=== PATIENT | female | born 1970 | race Caucasian/White ===

== ENCOUNTER → 2017-09-22 12:58 | Outpatient (POV) | payer BC, SELFPAY | PROVIDERS: Family Provider Family Medicine; Visit Provider Dermatology | DX: Z00.00 Encounter for general adult medical examination without abnormal findings (principal) ==

== ENCOUNTER → 2018-01-05 09:05 | Outpatient (CLI) | payer BC, SELFPAY ==
--- NOTE | 2018-01-05 09:11 | XR_ITS ---
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 The kidneys are of normal size shape and position. There is mild ectasia of the left renal collecting system and proximal to mid ureter. The left ureter crosses midline at the L5-S1 junction to join the right ureter. The ureteral ectasia has resolved on the post void image. The right renal collecting system has an unremarkable appearance without evidence of obstruction. Post void image shows only minimal amount of post void residual urine within the urinary bladder. IMPRESSION: 1. Ectasia of the left renal collecting system which improves on the post void image. No definite point of obstruction. 2. Unremarkable right renal collecting system.
== END ==
PROVIDERS: Family Provider Family Medicine; PCP Urology; Visit Provider Urology
DX: R10.9 Unspecified abdominal pain (principal)
CPT/HCPCS: 74400; Q9967

== ENCOUNTER → 2018-07-18 14:32 | Outpatient (CLI) | payer BC, SELFPAY ==
--- NOTE | 2018-07-18 14:38 | XR_ITS ---
XR KUB HISTORY: ITS.REASON: kidney stones ORDERING PHYSICIAN: Vijay Bojorquez MD PATIENT AGE: 47 years COMPARISON: 01/05/2018 FINDINGS: Surgical clips are present in the lower abdominal region and right pelvic area. There are 2 faint calcifications are noted over the upper pole the right kidney suggesting right nephrolithiasis measuring approximately 2 to 3 mm. No obvious ureteral calculi. Multiple pelvic calcifications are present consistent with phleboliths similar to 01/05/2018. IMPRESSION: Possible right nephrolithiasis
== END ==
PROVIDERS: PCP Nurse Practitioner; Visit Provider Urology
DX: N20.0 Calculus of kidney (principal)
CPT/HCPCS: 74018

== ENCOUNTER 2018-09-22 10:00 | Outpatient (RCR) | payer BC, SELFPAY ==
--- NOTE | 2018-08-30 09:56 | HMH.PTOPEV ---
PT Outpatient Evaluation Rehab PT Outpatient Evaluation Start: 08/30/18 09:51 Freq: Status: Active Protocol: Document 08/30/18 09:51 HUMBERTO (Rec: 08/30/18 09:56 HUMBERTO [id number]) Electronically Signed By Anmol Neely, PT 08/30/18 09:51 Outpatient Therapy Subjective History Subjective History Pt reports injury to L side low back ~ 1month ago while using rowing machine followed by treadmill. Pt reports no radicular s/s, only very intermittent referred pain into L lateral pelvic area. Chief Complaint Pain Stiff Symptom Type Ache Throb Dull Symptoms Relieved By Rest/Positioning Ice Symptoms Aggravated By Bending/Stooping Twisting Prior Functional Limitations Reaching Lifting Housework Bending/Stooping Current Functional Limitations Reaching Lifting Housework Bending/Stooping Symptom Description Constant but Variable Level of pain today (0-10) 3 Pain scale - at its best (0-10) 0 Pain scale - at its worst (0-10) 6 Lumbopelvic Eval Posture Thoracic Spine Posture Standing Position Neutral Lumbar Spine Posture Standing Position Neutral Assistive device Assistive Devices None / NA Gait Observation General Gait Pattern Observation No Deviations/Normal Palapation tenderness left lumbar spinal tenderness Yes: 3/4 Lumbar/Sacral Palpation Findings Tenderness Trigger Point Range of Motion Lumbar Spine Active Flexion Range of 0-60 Motion (degrees) Lumbar Spine Active Extension Range of 0-25 Motion (degrees) Left Lumbar Spine Lateral Flexion Active 0-25 Range of Motion (degrees) Right Lumbar Spine Lateral Flexion 0-20 Active Range of Motion (degrees) Lumbar Spine ROM Limitations Pain Manual Muscle Test Bilateral Knee Extension Strength Grade 5 Normal Knee Flexion Strength Grade 5 Normal Hip Flexion Strength Grade 4- Good- Hip Abduction Strength Grade 4- Good- Hip Adduction Strength Grade 4- Good- Hip External Rotation Strength Grade 4- Good- Hip Internal Rotation Strength Grade 4- Good- Hip Extension Strength Grade 4- Good- Extensor Hallucis Longus Strength Grade 5 Normal Ankle Dorsiflexion Strength Grade 5 Normal Gastronemi
== END 2018-09-22 10:05 | disposition home or self-care (01) ==
LOC: PT 10:00
PROVIDERS: Visit Provider Nurse Practitioner Family
DX: M25.552 Pain in left hip (principal)
CPT/HCPCS: 97010; 97014; 97035; 97110; 97140; 97163; G0283

== ENCOUNTER 2020-01-12 19:19 | Emergency (ER) | payer BC, SELFPAY ==
[2020-01-12 19:19] VITALS: BP 131/83; PULSE 70; RESP 20; O2SAT 98; BMI 21.6
--- NOTE | 2020-01-12 19:46 | HMH.EDUTC ---
[facility] [place] Disposition Clinical Impression: Poison hilda dermatitis Disposition: Home, Self-Care Condition on Discharge: Good Instructions: Poisonous Plants: Hilda, [employer], and [place]: Beware the Oils, Poison Hilda, Poison [employer], Poison [place], DI for Poison Hilda Allergy, Prednisone Additional Instructions: Keep area clean and dry Do not scratch Over the counter Calamine lotion may help to dry up the rash FOllow up with Family Doctor if no improvement or any worsening of symptoms Take medication as prescribed Return if needed Rash may continue to break out over the next few days/weeks Cool compresses may help with itching and irritation Straight to ER if any life threatening symptoms Prescriptions: methylPREDNISolone [Medrol 4mg tab] 4 mg PO DIRECTED #21 tab Transmission Status: Received by [id number] Referrals: Krista Carballo APRN [Primary Care Provider] - As needed Time of Disposition: 19:52 Medical Decision Making - Miguel Inquiry Pt receiving controlled substance: No Miguel was queried for this patient: No Vital Signs: 01/12/20 19:19 Pulse Rate [Radial] 70 Respiratory Rate 20 Blood Pressure [Right Arm] 131/83 Blood Pressure Mean [Right Arm] 99 Blood Pressure Source [Right Arm] Automatic Cuff Blood Pressure Position [Right Arm] Sitting 02 Sat by Pulse Oximetry 98 Oxygen Delivery Method Room Air Orders (Tests/Meds): ED MEDICATIONS Discontinued Medications Generic Name Dose Route Start Last Admin Trade Name Joanne PRN Reason Stop Dose Admin Methylprednisolone Sodium Succinate 125 mg 01/12/20 19:48 01/12/20 19:56 Solu-Medrol 125mg/2ml Vial IM 01/12/20 19:49 125 mg ONCE ONE Administration [facility] [place] HPI - General Stated complaint: posion hilda Time Seen by Provider: 01/12/20 19:46 Mode of Arrival: Ambulatory Source of Information: Patient Limitations: No Limitations Description of Symptoms (Recalled from Triage Doc. by RN): poison hilda HEENT Symptoms (Recalled from RN notes): No Resp Symptoms (Recalled from RN notes): No Skin Symptoms (Recalled from RN notes): Yes MS Symptoms (Recalled from RN notes): No Functional Status (Recalled from RN notes): wnl - History of Present Illness Provider Complaint: Patient states that she got into poison hilda and she noticed earlier that she was starting to break out on her face just under her left eye and face State that she knew it would spread and has had to come in before for injections for poison hilda so she came in to try to see if she could catch it quick - Related Data Home Medications Medication Instructions Recorded Confirmed Levothyroxine Sodium [Synthroid 25 mcg PO DAILY 12/30/17 07/18/18 25mcg (0.025mg) tablet] Pravastatin Sodium 10 mg PO DAILY 12/30/17 07/18/18 Previous Rx's Medication Instructions Recorded Hydrocodone/Acetaminophen [Lortab 1 tab PO Q4HP PRN #18 tab 12/30/17 7.5/325mg tablet] Ondansetron [Zofran 4mg ODT] 4 mg PO Q8HP PRN #10 tab.rapdis 12/30/17 methylPREDNISolone [Medrol 4mg 4 mg PO DIRECTED #21 tab 01/12/20 tab] Allergies Allergy/AdvReac Type Severity Reaction Status Date / Time penicillin G [PENICILLIN G] Allergy Unknown Verified 07/18/18 15:13 - Worker's Comp Is this a Worker's Comp case?: No [facility] History - Hepatitis A Screen Drug use history?: No High risk sexual behaviors?: No History of sexually transmitted infection?: No Currently employed?: No Childcare worker?: No Do you have indoor plumbing?: Yes Do you have electricity?: Yes Attestation statement:: This patient has been screened for Hepatitis A risk factors. I have reviewed the patient's past medical history: Yes Medical History: Reports:: Hyperlipidemia Other Medical History: Reports: Thyroid Disease, Other Laterality Cases: Bilateral: Other Other Surgeries: Yes: Appendectomy, Dilation and Curettage, Hysterectomy-Total, Tubal Ligation, Ureter Stent, Other - Social History Smoking Status: Current
[2020-01-12 20:14] VITALS: BP 131/83; PULSE 70; RESP 20; TEMP 36.7; O2SAT 98
== END 2020-01-12 20:16 | disposition home or self-care (01) ==
PROVIDERS: Emergency Provider Nurse Practitioner; PCP Nurse Practitioner
DX: L23.7 Allergic contact dermatitis due to plants, except food (principal); E78.5 Hyperlipidemia, unspecified; E03.9 Hypothyroidism, unspecified; Z88.0 Allergy status to penicillin; Z79.899 Other long term (current) drug therapy; F17.210 Nicotine dependence, cigarettes, uncomplicated; Z90.49 Acquired absence of other specified parts of digestive tract; Z90.710 Acquired absence of both cervix and uterus
CPT/HCPCS: 96372; 99201

== ENCOUNTER → 2020-06-20 15:01 | Outpatient (CLI) | payer BC, SELFPAY ==
[2020-06-20 17:27] VITALS: BMI 20.8
== END ==
PROVIDERS: PCP Nurse Practitioner; Visit Provider Family Medicine
DX: Z71.3 Dietary counseling and surveillance (principal); E11.9 Type 2 diabetes mellitus without complications
CPT/HCPCS: 97802

== ENCOUNTER → 2022-10-27 16:28 | Outpatient (CLI) | payer BC, SELFPAY | PROVIDERS: PCP Nurse Practitioner Family; Visit Provider Nurse Practitioner Family | DX: R30.0 Dysuria (principal) | CPT/HCPCS: 87086 ==

== ENCOUNTER → 2022-11-03 08:00 | Outpatient (CLI) | payer BC, SELFPAY ==
[2022-11-03 08:27] LABS: Basophils % 1.4 % (0.1-2.0); Eosinophils # 0.1 K/mm3 (0.0-0.4); Eosinophils % 2.1 % (0.1-12.0); Hematocrit 46.9 % (37.0-47.0); Hemoglobin 14.9 g/dL (12.2-16.2); Lymphocytes # 1.3 K/mm3 (0.7-4.5); Lymphocytes % 40.9 % (10-50); Mean Corpuscular HGB Conc 31.9 g/dL (31.8-35.4); Mean Corpuscular Hemoglobin 30.3 pg (27.0-31.2); Mean Corpuscular Volume 95.1 fl (81-99); Mean Platelet Volume 9.1 fl (7.4-10.4); Monocytes # 0.2 K/mm3 (0.1-1.0); Monocytes % 5.6 % (1.7-9.3); Neutrophils # 1.6 K/mm3 (1.8-7.8); Neutrophils % 50.1 % (37.0-80.0); Platelet Count 229 K/mm3 (142-424); Red Blood Count 4.93 M/mm3 (4.20-5.40); Red Cell Distribution Width 12.9 % (11.5-17.5); White Blood Count 3.3 K/mm3 (4.8-10.8)
[2022-11-03 09:12] LABS: Alanine Aminotransferase 19 U/L (12-78); Albumin Level 4.7 g/dl (3.5-5.0); Albumin/Globulin Ratio 1.8 (1.1-1.8); Alkaline Phosphatase 105 U/L (38-126); Anion Gap 17.5 mEq/L (5-15); Aspartate Amino Transferase 23 U/L (14-36); Bilirubin,Total 0.8 mg/dl (0.2-1.3); Blood Urea Nitrogen 21 mg/dl (7-17); Calcium 9.5 mg/dl (8.4-10.2); Carbon Dioxide 24 mmol/L (22.0-30.0); Chloride 102 mmol/L (98-107); Estimated Glomerular Filt Rate 88 ml/min (>60); GFR (African American) 107 ML/MIN (>60); Globulin 2.6 g/dL (1.3-3.2); Glucose 236 mg/dl (74-100); HDL Cholesterol 102 mg/dl (40-60); Potassium 4.5 mmoL/L (3.5-5.1); Sodium 139 mmol/L (136-145); Total Protein,Serum 7.3 g/dl (6.3-8.2); Triglycerides 121 mg/dl (30-150); VLDL Cholesterol 24 mg/dL (0-40)
[2022-11-03 09:19] LABS: Chol/HDL Ratio 3.2 (1-3.5); Cholesterol 324 mg/dl (140-200)
[2022-11-03 09:23] LABS: Direct LDL Cholesterol 161.22 mg/dL (100-129)
[2022-11-03 09:41] LABS: Thyroid Stimulating Hormone 2.34 uIU/mL (0.465-4.68)
[2022-11-03 11:24] LABS: Hemoglobin A1C 9.4 % (4.0-6.0)
--- NOTE | 2022-11-03 15:17 | CT_ITS ---
FINAL REPORT TECHNIQUE: Axial CT images of the abdomen and pelvis were obtained before and after the administration of IV contrast. This study was performed with techniques to keep radiation doses as low as reasonably achievable (ALARA). Individualized dose reduction techniques using automated exposure control or adjustment of mA and/or kV according to the patient''s size were employed. CLINICAL HISTORY: abd pain FINDINGS: Abdomen: There is mild bibasilar atelectasis. The heart is normal in size. There are several hepatic cysts. There is mild nonspecific gallbladder wall thickening. Probable cyst is seen in the spleen. No adrenal masses present. The pancreas has an unremarkable appearance. There is mild right renal scarring. There is mild left hydronephrosis and hydroureter. The aorta is normal in caliber. There is no free fluid or adenopathy. No mass or abnormal fluid collection is seen. Precontrast images demonstrate no evidence of nephrolithiasis. Pelvis: The appendix is not well visualized. Mild bladder wall thickening is seen, likely inflammatory. The patient is status post hysterectomy. Note is made of a left paracentral L5-S1 disc protrusion. No inflammatory process is seen. There is no evidence of mass or adenopathy. There is no evidence of bowel obstruction. IMPRESSION: Mild left hydronephrosis and hydroureter. No acute inflammatory process. Reviewed, Interpreted and Dictated by Randall Trevino III, MD Transcribed by Brenda Talavera Authenticated and . [facility]
== END ==
PROVIDERS: PCP Nurse Practitioner Family; Visit Provider Nurse Practitioner Family
DX: E10.9 Type 1 diabetes mellitus without complications (principal); R10.9 Unspecified abdominal pain; E03.9 Hypothyroidism, unspecified; E78.5 Hyperlipidemia, unspecified
CPT/HCPCS: 74178; 80053; 80061; 83036; 84443; 85025; Q9967

== ENCOUNTER → 2023-04-04 14:05 | Outpatient (CLI) | payer BC, SELFPAY ==
[2023-04-04 11:28] LABS: Microscopic, Urine URINE MICROSCOPIC (MICROSCOPIC)
[2023-04-04 11:52] LABS: Appearance,Urine CLEAR (Clear); Bilirubin,Urine Negative (Negative); Blood, Urine Negative (Negative); Color,Urine YELLOW (Yellow); Glucose,Urine (UA) 3+ (Negative); Ketones,Urine 2+ (Negative); Leukocyte Esterase,Urine Negative (Negative); Nitrate,Urine Negative (Negative); Protein,Urine Negative (Negative); Specific Gravity, Urine >= 1.030 (1.005-1.030); Urobilinogen,Urine 0.2 EU/dl (0.2)
[2023-04-04 12:06] LABS: Bacteria,Urine Trace /lpf; Squamous Epithelial Cell,Urine Occasional #/hpf (0-5)
[2023-04-04 12:07] LABS: Microalbumin/Creatinine Ratio 7.2
[2023-04-04 12:08] LABS: Creatinine,Urine Random 131 mg/dL (Not Estab.)
[2023-04-04 12:36] LABS: Alanine Aminotransferase 26 U/L (12-78); Albumin Level 4.6 g/dl (3.5-5.0); Albumin/Globulin Ratio 1.6 (1.1-1.8); Alkaline Phosphatase 81 U/L (38-126); Anion Gap 14.2 mEq/L (5-15); Aspartate Amino Transferase 27 U/L (14-36); Bilirubin,Total 1.5 mg/dl (0.2-1.3); Blood Urea Nitrogen 18 mg/dl (7-17); Calcium 9.8 mg/dl (8.4-10.2); Carbon Dioxide 29 mmol/L (22.0-30.0); Chloride 100 mmol/L (98-107); Chol/HDL Ratio 2.2 (1-3.5); Cholesterol 233 mg/dl (140-200); Estimated Glomerular Filt Rate 88 ml/min (>60); GFR (African American) 106 ML/MIN (>60); Globulin 2.9 g/dL (1.3-3.2); Glucose 277 mg/dl (74-100); HDL Cholesterol 108 mg/dl (40-60); Potassium 4.2 mmoL/L (3.5-5.1); Sodium 139 mmol/L (136-145); Total Protein,Serum 7.5 g/dl (6.3-8.2); Triglycerides 140 mg/dl (30-150); VLDL Cholesterol 28 mg/dL (0-40)
[2023-04-04 12:46] LABS: Direct LDL Cholesterol 100.21 mg/dL (100-129)
[2023-04-04 12:53] LABS: 25-OH Vitamin D, Total 39.6 ng/mL (30-100); Free T4 (Free Thyroxine) 1.89 ng/dl (0.78-2.19)
[2023-04-04 13:06] LABS: Thyroid Stimulating Hormone 0.87 uIU/mL (0.465-4.68)
[2023-04-04 13:26] LABS: Vitamin B12 703 pg/mL (239-931)
== END ==
PROVIDERS: PCP Nurse Practitioner Family; Visit Provider Nurse Practitioner Family
DX: E03.9 Hypothyroidism, unspecified (principal); E11.9 Type 2 diabetes mellitus without complications; E78.5 Hyperlipidemia, unspecified; B96.89 Other specified bacterial agents as the cause of diseases classified elsewhere; Z79.4 Long term (current) use of insulin
CPT/HCPCS: 80053; 80061; 81001; 82043; 82306; 82570; 82607; 83036; 84439; 84443; 87086

== ENCOUNTER → 2023-05-25 10:13 | Outpatient (CLI) | payer BC, SELFPAY | LOC: SL 10:15 | PROVIDERS: PCP Nurse Practitioner Family; Visit Provider Nurse Practitioner Family | DX: G47.33 Obstructive sleep apnea (adult) (pediatric) (principal) | CPT/HCPCS: G0399 ==

== ENCOUNTER 2023-10-03 14:13 | Outpatient (CLI) | payer BC, SELFPAY ==
[2023-10-03 13:37] LABS: Microscopic, Urine URINE MICROSCOPIC (MICROSCOPIC)
[2023-10-03 14:05] LABS: Appearance,Urine CLEAR (Clear); Bilirubin,Urine Negative (Negative); Blood, Urine Negative (Negative); Color,Urine YELLOW (Yellow); Glucose,Urine (UA) Negative (Negative); Ketones,Urine TRACE (Negative); Leukocyte Esterase,Urine Negative (Negative); Nitrate,Urine Negative (Negative); PH,Urine 5.5 (5.0-8.5); Protein,Urine Negative (Negative); Specific Gravity, Urine >= 1.030 (1.005-1.030); Urobilinogen,Urine 0.2 EU/dl (0.2)
[2023-10-03 14:28] LABS: Basophils # 0.1 K/mm3 (0-0.2); Basophils % 1.6 % (0.1-2.0); Eosinophils # 0.1 K/mm3 (0.0-0.4); Eosinophils % 2.5 % (0.1-12.0); Hematocrit 43.1 % (37.0-47.0); Hemoglobin 13.6 g/dL (12.2-16.2); Lymphocytes # 1.4 K/mm3 (0.7-4.5); Lymphocytes % 38.1 % (10-50); Mean Corpuscular HGB Conc 31.6 g/dL (31.8-35.4); Mean Corpuscular Volume 98.1 fl (81-99); Mean Platelet Volume 9.3 fl (7.4-10.4); Monocytes # 0.2 K/mm3 (0.1-1.0); Monocytes % 5.4 % (1.7-9.3); Neutrophils # 1.9 K/mm3 (1.8-7.8); Neutrophils % 52.4 % (37.0-80.0); Platelet Count 220 K/mm3 (142-424); Red Blood Count 4.39 M/mm3 (4.20-5.40); Red Cell Distribution Width 13.4 % (11.5-17.5); White Blood Count 3.6 K/mm3 (4.8-10.8)
[2023-10-03 14:31] LABS: Bacteria,Urine 1+ /lpf; Squamous Epithelial Cell,Urine Occasional #/hpf (0-5)
[2023-10-03 15:06] LABS: Alanine Aminotransferase 22 U/L (12-78); Albumin Level 4.4 g/dl (3.5-5.0); Albumin/Globulin Ratio 1.6 (1.1-1.8); Alkaline Phosphatase 88 U/L (38-126); Anion Gap 14.2 mEq/L (5-15); Aspartate Amino Transferase 32 U/L (14-36); Bilirubin,Total 1.2 mg/dl (0.2-1.3); Blood Urea Nitrogen 16 mg/dl (7-17); Calcium 9.7 mg/dl (8.4-10.2); Carbon Dioxide 28 mmol/L (22.0-30.0); Chloride 104 mmol/L (98-107); Cholesterol 220 mg/dl (140-200); Estimated Glomerular Filt Rate 88 ml/min (>60); GFR (African American) 106 ML/MIN (>60); Globulin 2.7 g/dL (1.3-3.2); Glucose 140 mg/dl (74-100); Potassium 5.2 mmoL/L (3.5-5.1); Sodium 141 mmol/L (136-145); Total Protein,Serum 7.1 g/dl (6.3-8.2); Triglycerides 37 mg/dl (30-150); VLDL Cholesterol 7 mg/dL (0-40)
[2023-10-03 15:10] LABS: Creatinine,Urine Random 94 mg/dL (Not Estab.)
[2023-10-03 15:11] LABS: Hemoglobin A1C 6.8 % (4.0-6.0)
[2023-10-03 15:14] LABS: Microalbumin < 6.000 mg/L (0-16.7)
[2023-10-03 15:17] LABS: Direct LDL Cholesterol 97.78 mg/dL (100-129)
[2023-10-03 15:24] LABS: HDL Cholesterol 111 mg/dl (40-60)
[2023-10-03 15:30] LABS: Free T4 (Free Thyroxine) 1.57 ng/dl (0.78-2.19)
[2023-10-03 15:40] LABS: Thyroid Stimulating Hormone 0.51 uIU/mL (0.465-4.68)
[2023-10-03 15:59] LABS: Vitamin B12 455 pg/mL (239-931)
== END 2023-10-03 23:59 | disposition home or self-care (01) ==
LOC: LAB.DROPOF 14:14
PROVIDERS: PCP Nurse Practitioner Family; Visit Provider Nurse Practitioner Family
DX: E10.9 Type 1 diabetes mellitus without complications (principal); E03.9 Hypothyroidism, unspecified; R53.83 Other fatigue; G47.33 Obstructive sleep apnea (adult) (pediatric); E78.5 Hyperlipidemia, unspecified; E55.9 Vitamin D deficiency, unspecified; Z79.4 Long term (current) use of insulin; Z79.899 Other long term (current) drug therapy
CPT/HCPCS: 80053; 80061; 81001; 82043; 82306; 82570; 82607; 83036; 84439; 84443; 85025; 87086

== ENCOUNTER → 2024-03-15 06:37 | Outpatient (CLI) | payer BC, SELFPAY | LOC: SL 06:38 | PROVIDERS: PCP Specialist; Visit Provider Specialist | DX: G47.33 Obstructive sleep apnea (adult) (pediatric) (principal) | CPT/HCPCS: G0399 ==

== ENCOUNTER 2024-04-02 14:39 | Outpatient (CLI) | payer BC, SELFPAY ==
[2024-04-02 12:58] LABS: Microscopic, Urine URINE MICROSCOPIC (MICROSCOPIC)
[2024-04-02 13:35] LABS: Appearance,Urine CLEAR (Clear); Bilirubin,Urine Negative (Negative); Blood, Urine Negative (Negative); Color,Urine YELLOW (Yellow); Glucose,Urine (UA) Negative (Negative); Ketones,Urine Negative (Negative); Leukocyte Esterase,Urine Negative (Negative); Nitrate,Urine Negative (Negative); Protein,Urine Negative (Negative); Specific Gravity, Urine >= 1.030 (1.005-1.030); Urobilinogen,Urine 0.2 EU/dl (0.2)
[2024-04-02 13:40] LABS: Alanine Aminotransferase 29 U/L (12-78); Albumin Level 4.6 g/dl (3.5-5.0); Albumin/Globulin Ratio 1.8 (1.1-1.8); Alkaline Phosphatase 63 U/L (38-126); Anion Gap 14.9 mEq/L (5-15); Aspartate Amino Transferase 31 U/L (14-36); Bilirubin,Total 1.2 mg/dl (0.2-1.3); Blood Urea Nitrogen 14 mg/dl (7-17); Calcium 9.5 mg/dl (8.4-10.2); Carbon Dioxide 23 mmol/L (22.0-30.0); Chloride 106 mmol/L (98-107); Chol/HDL Ratio 2.7 (1-3.5); Cholesterol 233 mg/dl (140-200); Estimated Glomerular Filt Rate 65 ml/min (>60); GFR (African American) 79 ML/MIN (>60); Globulin 2.6 g/dL (1.3-3.2); Glucose 126 mg/dl (74-100); HDL Cholesterol 86 mg/dl (40-60); Potassium 4.9 mmoL/L (3.5-5.1); Sodium 139 mmol/L (136-145); Total Protein,Serum 7.2 g/dl (6.3-8.2); Triglycerides 81 mg/dl (30-150); VLDL Cholesterol 16 mg/dL (0-40)
[2024-04-02 13:51] LABS: Direct LDL Cholesterol 119.14 mg/dL (100-129)
[2024-04-02 13:56] LABS: 25-OH Vitamin D, Total 48.7 ng/mL (30-100)
[2024-04-02 15:45] LABS: Hemoglobin A1C 6.8 % (4.0-6.0)
[2024-04-02 17:31] LABS: Free T4 (Free Thyroxine) 1.36 ng/dl (0.78-2.19)
== END 2024-04-02 23:59 | disposition home or self-care (01) ==
LOC: LAB.DROPOF 14:39
PROVIDERS: PCP Nurse Practitioner Family; Visit Provider Nurse Practitioner Family
DX: E10.9 Type 1 diabetes mellitus without complications (principal); R53.83 Other fatigue; E55.9 Vitamin D deficiency, unspecified; E03.9 Hypothyroidism, unspecified; E78.5 Hyperlipidemia, unspecified
CPT/HCPCS: 80053; 80061; 81001; 82306; 83036; 84439; 84443; 87086

== ENCOUNTER 2024-04-23 14:38 | Outpatient (CLI) | payer BC, SELFPAY ==
--- NOTE | 2024-04-23 14:41 | MM_ITS ---
PROCEDURE INFORMATION: Exam: Bilateral Screening 3D Mammography Exam date and time: 04/23/2024 2:37 PM Age: 53 years old Clinical indication: Screening. No family history of breast cancer. TECHNIQUE: Imaging protocol: Bilateral Screening tomosynthesis and 2D mammography including computer-aided detection (CAD) when performed. COMPARISON: [facility] DIGITAL MAMM-SCREEN BILATERAL 03/14/2012 5:00 PM FINDINGS: MAMMOGRAPHY: Breast composition: The breasts are heterogeneously dense, which may obscure small masses. Mass: None. Architectural distortion: None. Calcifications: No suspicious calcifications. Asymmetric density: None. Skin thickening: None. Axillary adenopathy: None. IMPRESSION: No mammographic evidence of malignancy. Annual screening is recommended unless otherwise clinically indicated. ASSESSMENT: BI-RADS Category 1: Negative.
== END 2024-04-23 23:59 | disposition home or self-care (01) ==
LOC: RAD 14:41
PROVIDERS: PCP Nurse Practitioner Family; Visit Provider Nurse Practitioner Family
DX: Z12.31 Encounter for screening mammogram for malignant neoplasm of breast (principal)
CPT/HCPCS: 77063; 77067

== ENCOUNTER 2024-05-04 09:26 | Outpatient (CLI) | payer BC, SELFPAY ==
[2024-05-04 13:24] LABS: Free T4 (Free Thyroxine) 2.17 ng/dl (0.78-2.19)
[2024-05-04 13:39] LABS: Thyroid Stimulating Hormone 0.47 uIU/mL (0.465-4.68)
== END 2024-05-04 23:59 | disposition home or self-care (01) ==
LOC: LAB.DROPOF 05-07 08:54
PROVIDERS: PCP Nurse Practitioner Family; Visit Provider Nurse Practitioner Family
DX: E03.9 Hypothyroidism, unspecified (principal)
CPT/HCPCS: 84439; 84443

== ENCOUNTER 2024-06-13 09:23 | Day surgery (SDC) | payer BC, SELFPAY ==
[2024-06-12 10:07] VITALS: BMI 21.2
[2024-06-13 09:52] VITALS: BP 119/62; PULSE 87; RESP 18; TEMP 36.5; O2SAT 99
[2024-06-13] MEDS: LACTATED RINGERS 1000ML 1,000 ML 50 ML IV (10:01)
[2024-06-13 10:04] LABS: POC Glucose,Bedside 91 (70-110)
--- NOTE | 2024-06-13 11:31 | P.PNANES_ITS ---
[facility] Disclaimer: The information contained in this section may have been updated after the patient was seen, as this information can be updated by other users. Medical History Poison roxane dermatitis Vertigo KARINA (obstructive sleep apnea) Hydroureter on left Hydronephrosis of left kidney Abdominal pain History of blood transfusion Ileus, postoperative Hyperlipidemia Hypothyroid Type 1 diabetes Renal colic on right side Surgical History Hx of ureter repair History of cystoscopy History of bilateral tubal ligation History of hysteroscopy Hx of salpingo-oophorectomy, bilateral H/O: hysterectomy History of appendectomy Family History Mother Diabetes type 2 diabetes Hypertension Heart attack Stroke Brother Diabetes type 2 Heart attack Hypertension Brother Diabetes type 2 Social History (Updated 06/13/24 @ 09:59 by Karol Horner RN) Smoking Status: Never smoker second hand exposure: No alcohol intake: current alcohol intake frequency: a few times a month substance use type: denies use current occupational status: employed Travel in the last 8 weeks: None caffeine: Yes Have you lived/traveled outside [place] in past 30 days?: No Contact w/someone who lives/traveled outside US past 30 days?: No Exposure to someone with infectious disease in past 14 days?: No Do you have a fever (greater than 100.4 F or 38 C)?: No Have you tested positive for COVID-19: No Exposed to someone with COVID-19 in past 14 days?: No Do you have a sore throat?: No Do you have a cough?: No Do you have any weakness?: No Are you experiencing any nausea/vomitting?: No Do you have any diarrhea?: No Are you experiencing any unusual bleeding?: No Do you have any muscle aches/pain?: No Do you have any abdominal pain?: No Are you experiencing loss of taste or smell?: No [facility] Anesthesia Checklist Patient Identification Patient Identification: Arm Band and Verbal (Name & ) Structural Data Admitted From: Home Planned Operative Procedure/s: Colonoscopy Consent for Planned Operative Procedure(s) Verified: Yes Verified Documents: Surgical Consent and History and Physical NPO Status Verified Time NPO: 06:30 Chart Verification Results Verified: CBC and BMP Additional verifications Fingerstick Blood Glucose: 91 Patient : No Anesthesia Reactions: No Cardiovascular Assessment Heart Sounds: S1 & S2 Pulse Rhythm: Irregular Peripheral Edema: No Airway Assessment Mallampati Score:: Class I C-Spine Mobility Assessed: Yes TMJ Mobility Assessed: Yes Dentition: Good Dentition Neurological Assessment Level of Consciousness: Awake, Alert, Appropriate and Follows Commands Hx Seizures: No Numbness or tingling in extremities: No Anesthesia Plan Anesthesia Risk discussed: Yes Anesthesia Plan: Verified ASA Class: III Anesthesia Type: MAC
[2024-06-13 11:32] VITALS: O2SAT 100
--- NOTE | 2024-06-13 11:40 | EXP.HP ---
History of Present Illness *Admission Date: 06/13/24 *Reason for visit:: Screening colonoscopy *History of present illness: Mrs. Lanier is a 53-year-old female who is here for initial screening colonoscopy. The examination is deemed medically necessary for screening colonoscopy. The patient has been seen, interviewed and examined prior to the procedure by both myself and the anesthesia provider. [facility] Disclaimer: The information contained in this section may have been updated after the patient was seen, as this information can be updated by other users. Medical History Poison roxane dermatitis Vertigo KARINA (obstructive sleep apnea) Hydroureter on left Hydronephrosis of left kidney Abdominal pain History of blood transfusion Ileus, postoperative Hyperlipidemia Hypothyroid Type 1 diabetes Renal colic on right side Surgical History Hx of ureter repair History of cystoscopy History of bilateral tubal ligation History of hysteroscopy Hx of salpingo-oophorectomy, bilateral H/O: hysterectomy History of appendectomy Family History Mother Diabetes type 2 diabetes Hypertension Heart attack Stroke Brother Diabetes type 2 Heart attack Hypertension Brother Diabetes type 2 Social History (Updated 06/13/24 @ 09:59 by Karol Horner RN) Smoking Status: Never smoker second hand exposure: No alcohol intake: current alcohol intake frequency: a few times a month substance use type: denies use current occupational status: employed Travel in the last 8 weeks: None caffeine: Yes Have you lived/traveled outside US in past 30 days?: No Contact w/someone who lives/traveled outside US past 30 days?: No Exposure to someone with infectious disease in past 14 days?: No Do you have a fever (greater than 100.4 F or 38 C)?: No Have you tested positive for COVID-19: No Exposed to someone with COVID-19 in past 14 days?: No Do you have a sore throat?: No Do you have a cough?: No Do you have any weakness?: No Are you experiencing any nausea/vomitting?: No Do you have any diarrhea?: No Are you experiencing any unusual bleeding?: No Do you have any muscle aches/pain?: No Do you have any abdominal pain?: No Are you experiencing loss of taste or smell?: No Other Medical History Have you received the Flu Vaccine for this season: No Have you received the Pneumonia Vaccine: No Review of Systems Review of Systems Review of systems (narrative): Negative *Cardiovascular Comments: Negative *Gastrointestinal Comments: Negative *Genitourinary Comments: Negative *Musculoskeletal Comments: Negative *Neurologic Comments: Negative Meds Home Medications and Allergies Home Medications ?Medication ?Instructions ?Recorded ?Confirmed ?Type blood sugar diagnostic (FreeStyle #100 ea 12/14/22 04/02/24 Rx Lite Strips) lancets 28 gauge (FreeStyle #100 ea 12/14/22 04/02/24 Rx Lancets) blood-glucose meter,continuous #1 ea 04/04/23 04/02/24 Rx (Dexcom G6 Supervisor Slitting [employer] Shipping) insulin aspart U-100 100 unit/mL See Protocol continuous 06/15/23 06/13/24 History subcutaneous solution (Novolog subcutaneous infusion CONT U-100 Insulin aspart) insulin pump cart,automated,BT #5 ea 06/15/23 04/02/24 History (Omnipod 5 G6 Pods (Gen 5) subcutaneous cartridge) blood-glucose transmitter (Dexcom #1 ea 02/15/24 04/02/24 Rx G6 Transmitter device) insulin pump cart,auto,BT,G6/7 #5 ea 04/02/24 04/02/24 History (Omnipod 5 G6-G7 Pods (Gen 5) subcutaneous cartridge) blood-glucose sensor (Dexcom G6 #3 ea 04/12/24 Rx Sensor device) levothyroxine 125 mcg tablet 125 mcg PO DAILY #30 tabs 05/07/24 06/13/24 Rx ezetimibe 10 mg tablet 10 mg PO DAILY #90 tabs 05/31/24 06/13/24 Rx sod picosulf 10 mg-magnes 3.5 175 ml PO DAILY Bowel Prep 2 doses 06/01/24 Rx gram-citric 12 gram/175 mL oral #350 mL solution (Clenpiq) New Prescriptions to Start Prescriptions: Allergies Allergy/AdvReac Type Severity Reaction Status Date / Time penicillin G (PENICILLIN G) Allergy Unknown Swelling Verified 06/13/24 09:50 of Lip/Tongue/Throat Hqhaped-ZAI-MhX Reductase AdvReac Severe Abdominal Verified 06/13/24 09:50 Inhibitor Pain Exam Data for Last 24 hours Vital signs and Labs for Last 24 Hours: Temp Pulse Resp BP Pulse Ox O2 Del Method O2 Flow Rate 97.7 F 87 18 119/62 99 Nasal Cannula 6 06/13/24 09:52 06/13/24 09:52 06/13/24 09:52 06/13/24 09:52 06/13/24 09:52 06/13/24 11:32 06/13/24 11:32 Laboratory Results - last 24 hr 06/13/24 09:56: POC Glucose 91 I & O for Last 24 hours: Intake & Output 06/10/24 06/11/24 06/12/24 06/13/24 23:59 23:59 23:59 23:59 Weight 128 lb *Routine HEENT Exam Head: Present normocephalic Eye: Present EOMI and PERRL ENT: Present mucous membranes moist *Routine Neck Exam Neck: Present supple *Routine Respiratory Exam Respiratory: Present CTA bilaterally *Routine Cardiovascular Exam Cardiovascular: Present RRR *Routine Abdominal Exam Abdominal: Present soft and normoactive bowel sounds; Absent tenderness *Routine Rectal Exam Rectal:: deferred *Routine Genitalia Exam Genitalia:: deferred *Routine Extremities Exam Extremities: Absent cyanosis, clubbing or edema *Routine Skin Exam Skin: Present warm; Absent rash *Routine Neurological Exam Neurological: Present alert and oriented X3 Assessment and Plan *Assessment and plan (1) Colon cancer screening: Status: Acute Category: Medical Code(s): Z12.11 - Encounter for screening for malignant neoplasm of colon Plan A/P: 1. Initial screening colonoscopy is the preprocedural diagnosis. The patient will be anesthetized/sedated using MAC sedation. The patient has been seen and examined. Cardiac and lung assessment prior to the examination is stable. Proceed with planned screening colonoscopy
--- NOTE | 2024-06-13 11:42 | P.PCN_ITS ---
[facility] [place] Procedure Note Date: 06/13/24 Time: 11:53 Procedure Note:: Colonoscopy Procedure Report: Colonoscopy Endoscopist: Jed Li II, MD Referring physician: KAY Oropeza Date of Procedure: June 13, 2024 Equipment: Olympus 190 variable stiffness pediatric colonoscope Sedation: MAC sedation Indication: Mrs. Lanier is a 53-year-old female who is here for initial screening colonoscopy. She reports no abdominal pain, weight loss, change in her bowel habits or rectal bleeding. She reports no family history of colon cancer. Procedure: Prior to the procedure, a history and physical exam was performed, and patient's medications and allergies were reviewed. The risks, benefits and alternatives of the sedation and procedure were discussed with the patient. All questions were answered and informed consent was obtained. The patient was brought to the procedure room. Patient identification and proposed procedure were verified by the physician and the nurse. The patient was placed in a left lateral decubitus position and the scope was passed under direct vision. Throughout the procedure, the patient's blood pressure, pulse, and oxygen saturations were monitored continuously. The colonoscopy was accomplished without difficulty. The patient tolerated the procedure well. Findings: On digital rectal examination there was normal rectal tone. There were no external hemorrhoids. The colonoscope was introduced through the anal canal to the rectum and advanced to the cecum. The ileocecal valve and appendiceal orifice were identified. The scope was advanced a short distance into the ileum which appeared grossly normal. The scope was then withdrawn into the colon. There was some bulbous extrinsic compression adjacent to the ileocecal valve with normal overlying mucosa and certainly no evidence of any submucosal mass or lesion. The remaining cecum, ascending, transverse, descending, sigmoid and rectum were grossly normal. There were no mucosal abnormalities identified. Upon retroflexion within the rectum there were grade 1 internal hemorrhoids.The preparation was excellent throughout with [place] Preparation Score of 9. The cecal time was 12 minutes. Impression: 1. Normal colonoscopy with intubation of the terminal ileum 2. Mild extrinsic compression adjacent to ileocecal valve Plan: The patient will not require surveillance colonoscopy again for 10 years. I did see some extrinsic compression of the cecum adjacent to the ileocecal valve and the ileum was normal. I would consider CT imaging of the abdomen.
[2024-06-13 11:58] VITALS: BP 99/66; PULSE 88; RESP 16; TEMP 36.7; O2SAT 99
[2024-06-13 12:08] VITALS: BP 107/64; PULSE 87; RESP 18; O2SAT 98
[2024-06-13 12:18] VITALS: BP 103/72; PULSE 92; RESP 18; O2SAT 98
[2024-06-13 12:28] VITALS: BP 133/69; PULSE 85; RESP 18; O2SAT 99
--- NOTE | 2024-06-13 12:29 | SUR.PHASEII ---
NOTIFIED RAD OF CT ABD ORDER WITH IV AND ORAL CONTRAST. THIS RN LET STAFF KNOW THAT MD MARQUEZ IS REQUESTING IT WITH IV AND ORAL CONTRAST AND WE DO NOT HAVE ORAL CONTRAST IN POST OP.
[2024-06-13] MEDS: DIATRIZOATE MEG 66% & DIATRIZOATE NA 10% 30ML UDC 30 ML PO (12:35)
--- NOTE | 2024-06-13 14:35 | CT_ITS ---
FINAL REPORT TECHNIQUE: CT examination of the abdomen and pelvis was performed with and without intravenous contrast using axial images. Subsequent coronal and sagittal reconstructions were performed. This study was performed with techniques to keep radiation doses as low as reasonably achievable (ALARA). Individualized dose reduction techniques using automated exposure control or adjustment of mA and/or kV according to the patient's size were employed. CLINICAL HISTORY: Extrinsic compression cecum COMPARISON: 11/03/2022 FINDINGS: The lung bases are clear. There is a benign-appearing cyst in the right lobe of the liver, measuring 2.7 cm in size, stable when compared to the prior CT. There is also a cyst in the anterior aspect of the spleen with an adjacent calcification, also stable. The spleen is otherwise unremarkable. The adrenals are normal. The pancreas is unremarkable. Mild left hydronephrosis and hydroureter to the level of surgical clips adjacent to the iliac vessels is once again noted, stable. Precontrast images demonstrate no nephrolithiasis. No focal pelvic mass or free fluid is identified. The cecum is low-lying, and is positioned adjacent to the rectum. The bladder is unremarkable in appearance. The uterus is not visualized. IMPRESSION: No acute process The cecum is low-lying and positioned adjacent to the rectum. No extrinsic compression of the cecum is visualized. Reviewed, Interpreted and Dictated by Shaji Dunham MD Transcribed by Christin Perrin Authenticated and . [facility]
--- NOTE | 2024-06-13 14:43 | SUR.PHASEII ---
patient dc'd from post-op to Radiology with IV access for CT Scan. Devora RT will remove IV after CT scan is completed
[2024-06-13] MEDS: IOPAMIDOL-370 (76%);100ML BOTTLE 75 ML IV (14:52)
[2024-06-13] MEDS: SODIUM CHLORIDE 0.9% 10ML SYR (RAD ONLY) 10 ML IV (14:52)
== END 2024-06-13 14:35 | disposition home or self-care (01) ==
PROVIDERS: PCP Nurse Practitioner Family; Visit Provider Internal Medicine Gastroenterology
PROC: (CPT 45378; principal; 2024-06-13 11:00)
DX: K64.0 First degree hemorrhoids (principal); Z12.11 Encounter for screening for malignant neoplasm of colon
CPT/HCPCS: 45378; 74178; 82962; J7120; Q9963; Q9967

== ENCOUNTER 2024-06-18 15:40 | Outpatient (CLI) | payer BC, SELFPAY ==
[2024-06-18 17:25] LABS: Basophils # 0.1 K/mm3 (0-0.2); Basophils % 1.6 % (0.1-2.0); Eosinophils # 0.1 K/mm3 (0.0-0.4); Eosinophils % 1.8 % (0.1-12.0); Hematocrit 40.1 % (37.0-47.0); Hemoglobin 13.6 g/dL (12.2-16.2); Lymphocytes # 1.8 K/mm3 (0.7-4.5); Lymphocytes % 36.5 % (10-50); Mean Corpuscular HGB Conc 33.9 g/dL (31.8-35.4); Mean Corpuscular Hemoglobin 31.1 pg (27.0-31.2); Mean Corpuscular Volume 91.6 fl (81-99); Mean Platelet Volume 11.3 fl (7.4-10.4); Monocytes # 0.4 K/mm3 (0.1-1.0); Neutrophils # 2.6 K/mm3 (1.8-7.8); Neutrophils % 51.9 % (37.0-80.0); Platelet Count 238 K/mm3 (142-424); Red Blood Count 4.38 M/mm3 (4.20-5.40); Red Cell Distribution Width 12.2 % (11.5-17.5)
[2024-06-18 17:55] LABS: Erythrocyte Sedimentation Rate 11 mm/hr (0-30)
[2024-06-19 12:18] LABS: C-Reactive Protein 0.9 mg/L (0-4)
== END 2024-06-18 23:59 | disposition home or self-care (01) ==
LOC: LAB.DROPOF 06-19 10:10
PROVIDERS: PCP Nurse Practitioner Family; Visit Provider Nurse Practitioner Family
DX: M25.561 Pain in right knee (principal); M25.461 Effusion, right knee; R10.31 Right lower quadrant pain
CPT/HCPCS: 85025; 85651; 86140

== ENCOUNTER 2024-06-22 12:49 | Outpatient (CLI) | payer BC, SELFPAY ==
--- NOTE | 2024-06-22 12:50 | US_ITS ---
FINAL REPORT CLINICAL HISTORY: right knee pain with swelling COMPARISON: None FINDINGS: Limited sonographic images were obtained of the right posterior knee at the region of interest. No cyst or mass identified at the area of interest. IMPRESSION: No abnormality identified right posterior knee. Reviewed, Interpreted and Dictated by Shaji Dunham MD Transcribed by Valerie Iyer Authenticated and [facility]
--- NOTE | 2024-06-22 12:50 | US_ITS ---
FINAL REPORT CLINICAL HISTORY: right knee pain with swelling COMPARISON: None FINDINGS: Limited sonographic images were obtained of the right inguinal region. Lymph nodes are seen measuring up to 3.4 cm in the right groin. The fatty juan diego is present in the lymph nodes. IMPRESSION: Enlarged lymph nodes right inguinal region. Findings do not appear pathologic and may be reactive. Reviewed, Interpreted and Dictated by Shaji Dunham MD Transcribed by Valerie Iyer Authenticated and [facility]
== END 2024-06-22 23:59 | disposition home or self-care (01) ==
LOC: RAD 12:50
PROVIDERS: PCP Nurse Practitioner Family; Visit Provider Nurse Practitioner Family
DX: M25.561 Pain in right knee (principal); M25.461 Effusion, right knee; R10.31 Right lower quadrant pain
CPT/HCPCS: 76882

== ENCOUNTER 2024-09-24 15:30 | Outpatient (CLI) | payer BC, SELFPAY ==
[2024-09-24 13:32] LABS: Microscopic, Urine URINE MICROSCOPIC (MICROSCOPIC)
[2024-09-24 13:53] LABS: Appearance,Urine CLEAR (Clear); Bilirubin,Urine Negative (Negative); Blood, Urine Negative (Negative); Color,Urine YELLOW (Yellow); Glucose,Urine (UA) Negative (Negative); Ketones,Urine Negative (Negative); Leukocyte Esterase,Urine Negative (Negative); Nitrate,Urine Negative (Negative); Protein,Urine Negative (Negative); Urobilinogen,Urine 0.2 EU/dl (0.2)
[2024-09-24 14:06] LABS: Bacteria,Urine Trace /lpf; Squamous Epithelial Cell,Urine Occasional #/hpf (0-5)
[2024-09-24 14:14] LABS: Creatinine,Urine Random 45 mg/dL (Not Estab.); Microalbumin < 6.000 mg/L (0-16.7)
[2024-09-24 14:17] LABS: Albumin Level 4.3 g/dl (3.5-5.0); Chloride 104 mmol/L (98-107); Potassium 4.8 mmoL/L (3.5-5.1); Sodium 135 mmol/L (136-145)
[2024-09-24 14:20] LABS: Alanine Aminotransferase 17 U/L (12-78); Albumin/Globulin Ratio 1.8 (1.1-1.8); Alkaline Phosphatase 76 U/L (38-126); Anion Gap 10.8 mEq/L (5-15); Aspartate Amino Transferase 25 U/L (14-36); Blood Urea Nitrogen 22 mg/dl (7-17); Calcium 9.5 mg/dl (8.4-10.2); Carbon Dioxide 25 mmol/L (22.0-30.0); Cholesterol 220 mg/dl (140-200); Estimated Glomerular Filt Rate 88 ml/min (>60); GFR (African American) 106 ML/MIN (>60); Globulin 2.4 g/dL (1.3-3.2); Glucose 117 mg/dl (74-100); Total Protein,Serum 6.7 g/dl (6.3-8.2); Triglycerides 52 mg/dl (30-150); VLDL Cholesterol 10 mg/dL (0-40)
[2024-09-24 14:21] LABS: Chol/HDL Ratio 2.3 (1-3.5); HDL Cholesterol 95 mg/dl (40-60)
[2024-09-24 14:31] LABS: Direct LDL Cholesterol 85.49 mg/dL (100-129)
[2024-09-24 14:38] LABS: Free T4 (Free Thyroxine) 1.93 ng/dl (0.78-2.19)
--- OUTSIDE RECORDS SUMMARY | 2024-09-24 15:32 | XMS_ITS | Continuity of Care Document ---
Author Name [facility] Organization [facility] Care Team Providers Care Process Mechanic Name Role Phone [facility] Unavailable Unavailable Social History Combined list of available smoking, tobacco, and other social history from Department of Defense and Veterans Affairs facilities. Social History Type Response Date Comment Sourc e This section is an empty social history section. DoD
[2024-09-24 21:53] LABS: Hemoglobin A1C 6.3 % (4.0-6.0)
== END 2024-09-24 23:59 | disposition home or self-care (01) ==
LOC: LAB.DROPOF 15:31
PROVIDERS: PCP Nurse Practitioner Family; Visit Provider Nurse Practitioner Family
DX: E78.5 Hyperlipidemia, unspecified (principal); E03.9 Hypothyroidism, unspecified; E10.9 Type 1 diabetes mellitus without complications
CPT/HCPCS: 80053; 80061; 81001; 82043; 82570; 83036; 84439; 84443; 87086

== ENCOUNTER 2024-10-30 08:38 | Outpatient (CLI) | payer BC, SELFPAY ==
[2024-10-30 15:10] LABS: Thyroid Stimulating Hormone 0.52 uIU/mL (0.465-4.68)
[2024-10-30 15:27] LABS: Free T4 (Free Thyroxine) 1.84 ng/dl (0.78-2.19)
--- OUTSIDE RECORDS SUMMARY | 2024-10-31 11:15 | XMS_ITS | Continuity of Care Document ---
Author Name [facility] Organization [facility] Care Team Providers Care Loan Originator Name Role Phone [facility] Unavailable Unavailable Social History Combined list of available smoking, tobacco, and other social history from Department of Defense and Veterans Affairs facilities. Social History Type Response Date Comment Sourc e This section is an empty social history section. DoD
--- OUTSIDE RECORDS SUMMARY | 2024-10-31 11:18 | XMS_ITS | Clinical Summary ---
Author Organization [facility] Address [address] [place] [address] Care Team Providers Care Registered Nurse Float Pool Name Role Phone Unavailable Primary Care Provider Unavailabl e Social History Tobacco Use Types Packs/Day Years Used Date Smoking Tobacco: Never Assessed Comments Unknown Sex and Gender Information Value Date Recorded Sex Assigned at Not on file Legal Sex Female 6:30 PM EDT Gender Identity Not on file Sexual Orientation Not on file Plan of Treatment Health Maintenance Due Date Last Done Comments [facility]-Depression Screening 1970 [facility]-Infant/Child/Adol SDOH Screenings 1970 [facility]- SDOH Screenings 1988 [facility]-Adult SDOH Screenings 1988 [facility]-DTaP,Tdap,and Td Vaccine s (1 - Tdap) 1989 [facility]-Hepatitis B Vaccines (1 of 3 - 19+ 3-dose series) 1989 [facility]-Pap Smear 12/28/1991 [facility]-Cervical Cancer Screening 2000 [facility]-HPV/Cotest 2000 CT Colonography 12/28/2015 Colonoscopy 12/28/2015 FIT-DNA 12/28/2015 FIT 12/28/2015 FOBT 12/28/2015 Sigmoidoscopy 12/28/2015 [facility]-Colorectal Cancer Screening 12/28/2015 [facility]-Pneumococcal Vaccine: 50 + Years (1 of 1 - PCV) 2020 [facility]-Zoster Vaccines (1 of 2) 2020 FCO-WZNVC-90 Vaccine (3 - 2023- season) 2024 03/06/2021, 02/06/2021 [facility]-Influenza Vaccine (Seaso n Ended) 2025 HPV Vaccines Aged Out No longer eligi ble based on patient's age to complete this topic [facility]-HIB Vaccines Aged Out No longer e ligible based on patient's age to complete this topic [facility]-Hepatitis A Vaccines Aged Out No longer eligible based on patient's age to complete this topic [facility]-IPV Vaccines Aged Out No longer e ligible based on patient's age to complete this topic [facility]-Rotavirus Vaccines Aged Out No lo nger eligible based on patient's age to complete this topic Insurance ANTH
--- OUTSIDE RECORDS SUMMARY | 2024-10-31 11:18 | XMS_ITS | Data Portability ---
Author Organization [facility] REESE Lewis [facility] Address [address] [place] [address] Care Team Providers Care Reservation Agent Name Role Phone CHARITY CURTIS Primary Care Provider Assessment No assessment recorded. Plan of Treatment Reminders Order Date Submit Date Provider Last Modified By Organization Details Last Modified Time Details Appointments None recorded. Lab urinalysis panel, auto 2022 023 [email or web address] [facility], [address], [place], [address], 3 14:59:20 urinalysis panel, auto 2022 023 [email or web address] [facility], [address], [address], [place], [address], 3 13:14:02 Referral None recorded. Procedures None recorded. Surgeries None recorded. Imaging None recorded. Medication Orders Gemtesa 75 mg tablet 2022 023 [email or web address] [facility], [address], [place], [address], 3 22:53:24 Patient TargetsNo targets recorded. Patient InstructionsNo instructions recorded. Reason for Referral None Reported. Results Created Date Observation Date Name Description Value Unit Range Abnormal Flag Note LastModifiedBy Organization Detail LastModifiedTime 11/09/1911/08/2022 urina lysis panel , auto Unknown Analyte Clean Catch Not Available [facility] [address], [place], [address], 11/08/2022 12:31:50 11/09/19 23 11/08/2022 urina lysis panel , auto Unknown Analyte Yellow Not Available [facility] [address], [place], [address], 11/08/2022 12:31:50 11/09/19 23 11/08/2022 urina lysis panel , auto Unknown Analyte Clear Not Available [facility] [address], [place], [address], 11/08/2022 12:31:50 11/09/19 23 11/08/2022 urina lysis panel , auto Unknown Analyte 1.005 Not Available [facility] [address], [place], [address], 11/08/2022 12:31:50 11/09/19 23 11/08/2022 urina lysis panel , auto Unknown Analyte 1.003- 1.035 Not Available [facility] [address], [place], [address], 11/08/2022 12:31:50 11/09/19 23 11/08/2022 urina lysis panel , auto Unknown Analyte 7.0 Not Available [facility] [address], [place], [address], 11/08/2022 12:31:50 11/09/19 23 11/08/2022 urina lysis panel , auto Unknown Analyte 5.0-8. 0 Not Available [facility] [address], [place], [address], 11/08/2022 12:31:50 11/09/19 23 11/08/2022 urina lysis panel , auto Unknown Analyte Negati ve Not Available [facility] [address], [place], [address], 11/08/2022 12:31:50 11/09/19 23 11/08/2022 urina lysis panel , auto Unknown Analyte Negati ve Not Available [facility] [address], [place], [address], 11/08/2022 12:31:50 11/09/19 23 11/08/2022 urina lysis panel , auto Unknown Analyte Negati ve Not Available [facility] [address], [place], [address], 11/08/2022 12:31:50 11/09/19 23 11/08/2022 urina lysis panel , auto Unknown Analyte Negati ve Not Available [facility] [address], [place], [address], 11/08/2022 12:31:50 11/09/19 23 11/08/2022 urina lysis panel , auto Unknown Analyte Negati ve Not Available [facility] [address], [place], [address], 11/08/2022 12:31:50 11/09/19 23 11/08/2022 urina lysis panel , auto Unknown Analyte Negati ve Not Available [facility] [address], [place], [address], 11/08/2022 12:31:50 11/09/19 23 11/08/2022 urina lysis panel , auto Unknown Analyte 250 mg/dl Not Available [facility] [address], [place], [address], 11/08/2022 12:31:50 11/09/19 23 11/08/2022 urina lysis panel , auto Unknown Analyte Normal Not Available [facility] [address], [place], [address], 11/08/2022 12:31:50 11/09/19 23 11/08/2022 urina lysis panel , auto Unknown Analyte 15 mg/dl (Sm) Not Available [facility] [address], [place], [address], 11/08/2022 12:31:50 11/09/19 23 11/08/2022 urina lysis panel , auto Unknown Analyte Negati ve Not Available [facility] [address], [place], [address], 11/08/2022 12:31:50 11/09/19 23 11/08/2022 urina lysis panel , auto Unknown Analyte Normal Not Available [facility] [address], [place], [address], 11/08/2022 12:31:50 11/09/19 23 11/08/2022 urina lysis panel , auto Unknown Analyte Normal 1 mg/dl Not Available [facility] [address], [place], [address], 11/08/2022 12:31:50 11/09/19 23 11/08/2022 urina lysis panel , auto Unknown Analyte Negati ve Not Available [facility] [address], [place], [address], 11/08/2022 12:31:50 11/09/19 23 11/08/2022 urina lysis panel , auto Unknown Analyte Negati ve Not Available [facility] [address], [place], [address], 11/08/2022 12:31:50 11/09/19 23 11/08/2022 urina lysis panel , auto Unknown Analyte Negati ve Not Available [facility] [address], [place], [address], 11/08/2022 12:31:50 11/09/19 23 11/08/2022 urina lysis panel , auto Unknown Analyte Negati ve Not Available [facility] [address], [place], [address], 11/08/2022 12:31:50 12/07/19 23 12/06/2022 urina lysis panel , auto Unknown Analyte Clean Catch Not Available [facility] [address], [place], [address], 12/06/2022 14:32:15 12/07/19 23 12/06/2022 urina lysis panel , auto Unknown Analyte Yellow Not Available [facility] [address], [place], [address], 12/06/2022 14:32:15 12/07/19 23 12/06/2022 urina lysis panel , auto Unknown Analyte Clear Not Available [facility] [address], [place], [address], 12/06/2022 14:32:15 12/07/19 23 12/06/2022 urina lysis panel , auto Unknown Analyte 1.010 Not Available [facility] [address], [place], [address], 12/06/2022 14:32:15 12/07/19 23 12/06/2022 urina lysis panel , auto Unknown Analyte 5.0 Not Available [facility] [address], [place], [address], 12/06/2022 14:32:15 12/07/19 23 12/06/2022 urina lysis panel , auto Unknown Analyte Negati ve Not Available [facility] [address], [place], [address], 12/06/2022 14:32:15 12/07/19 23 12/06/2022 urina lysis panel , auto Unknown Analyte POSITI VE (Abnor mal) Not Available [facility] [address], [place], [address], 12/06/2022 14:32:15 12/07/19 23 12/06/2022 urina lysis panel , auto Unknown Analyte Trace Not Available [facility] [address], [place], [address], 12/06/2022 14:32:15 12/07/19 23 12/06/2022 urina lysis panel , auto Unknown Analyte >1000 mg/dl Not Available [facility] [address], [place], [address], 12/06/2022 14:32:15 12/07/19 23 12/06/2022 urina lysis panel , auto Unknown Analyte 15 mg/dl (Sm) Not Available [facility] [address], [place], [address], 12/06/2022 14:32:15 12/07/19 23 12/06/2022 urina lysis panel , auto Unknown Analyte Normal Not Available [facility] [address], [place], [address], 12/06/2022 14:32:15 12/07/19 23 12/06/2022 urina lysis panel , auto Unknown Analyte Negati ve Not Available [facility] [address], [place], [address], 12/06/2022 14:32:15 12/07/19 23 12/06/2022 urina lysis panel , auto Unknown Analyte Negati ve Not Available [facility] [address], [place], [address], 12/06/2022 14:32:15 Result Notes None recorded. Problems Name Problem SNOMED Code Status Onset Date Resolution Date Notes Provider Name and Address Organization Details Recorded Time Acquired hydronephrosis 561541250 Active 2022 Radha Marcos [facility] 12:28:10 Problem Notes None recorded. Procedures Surgical History Date Name Laterality Status Provider Name and Address Organization Details Recorded Time 2022 Post Void Residual; Ultrasound completed Radha Marcos [facility] 3 13:57:12 Hysterectomy completed Radha Marcos [facility] 3 12:28:27 laparoscopic transureteroureterostomy completed Radhamanuel Marcos [facility] 3 12:29:08 Imaging Results None recorded. Procedure Notes None recorded. Medical Equipment None Reported. Allergies Allergen ID Allergen Name Allergen Category Reaction Reaction Severity Criticality Documentation Date Start Date Code Code System Note Provider Name and Address Organization Details Recorded Time 010306 Product containin g penicilli n (product) medicatio n Not available Not available Not available 11/08/2022 64463 8001 SNOMED Radhamanuel Marcos [facility] 3 12:26:47 Medications Name Sig Start Date Stop Date Status Note LastModified by Organization Details LastModified Time levothyroxine daily active Not Available Not Available Not Available pravastatin qhs active Not Available Not A vailable Not Available Gemtesa 75 mg tablet Take 1 tablet every day by oral route. 2022 active Not Available Not Available Not Avai lable Vitals Date Recorded Body height Body mass index (BMI) Body weight Provider Name and Address Organization Details Last Updated DateTime 11/08/2022 165.1 cm 20 kg/m2 28042.08 g Radha Marcos [facility] 11/08/2022 12:26:32 Date Recorded Body height Body mass index (BMI) Body weight Provider Name and Address Organization Details Last Updated DateTime 12/06/2022 165.1 cm 20 kg/m2 18264.08 g Peri Mas [facility] 12/06/2022 14:32:04 Social History Question Answer Notes LastModified by Organizat ion Details LastModified Time Tobacco Sm[facility] Status [facility] 12:31:35 What Was The Date Of Your Most Recent Tobacco Screening? 11/08/2022 Information not available 11/08/2022 Sex: Unknown Functional Status Question Answer Note LastModified by Organizat ion Details LastModified Time Do you use any illicit or recreational drugs? No Information not available 11/08/2022 What is your level of alcohol consumption? Occasional Information not available 11/08/2022 Mental Status None recorded. Family History Relationship Description Onset Age of this Age Resolved Age Notes LastModified by Organization Details LastModified Time Mother Diabetes mellitus kcinnamon Not available 2022 12:29:26 Brother Diabetes mellitus kcinnamon Not available 2022 12:29:26 Medical History Condition Response Diabetes Y Other Y Bladder or Kidney Problems Y Kidney Stones Y Sleep Apnea Y High Cholesterol Y Thyroid Disorder Y Gynecological HistoryNo gynecological history recorded. Obstetrics History GPAL:G 0 P 0 0 0 0 Past Encounters Encounter ID Performer Location Encounter Start Date Encounter Closed Date Diagnosis/Indication Diagnosis SNOMED-CT Code Diagnosis ICD10 Code Diagnosis Note [id number] MD MARIA E ORDOÑEZ [facility] [address] [facility] [place] [place] [address] 11/08/2022 11:55:10 11/08/2022 13:13:57 Increased frequency of urination 916331414 R35.0 She was given 4 weeks samples of Gemtesa. She will follow-up in 4 weeks [id number] LUBNA MORALES MD [facility] [address] [facility] [place] [address] 12/06/2022 14:08:26 12/06/2022 15:02:21 Increased frequency of urination 490011532 R35.0 She was given 2 more weeks of samples. She will take this for 3 months and then see how she was therapy. Follow-up here in 3 months Health Concerns Section Related Observation LastModified by Organization Detai ls LastModified Time None Recorded Concern Status LastModified by Organization Details LastModified Time None Recorded Advance Directives Directive None Recorded Payers Insurance Date Sequence Insurance Name Policy Number Policy Orr Covered Member ID Orr Member ID Guarantor Name 12/13/2022 1 [place] [id number] N Marzena Lanier [id number] Marzena Lanier 12/13/2022 2 [place] [id number] Davon Lanier [id number] Marzena Lanier Notes Date Note Type Note Provider Name and Address Organization Details Recorded Time 3 text/htm l Patient is here for initial visit in several years. I last saw her in 2019. 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 She had images in [address] scan as well as IVP which showed some slight dilation of the left proximal ureter but no obstruction. Recently she developed some suprapubic discomfort. Her urine culture was negative and her PCP arrange for a CT scan. This revealed some mild left hydronephrosis. Upon inspection it looks to be unchanged from 2019. She has had no flank pain. She had no hematuria. She continues to have some suprapubic pressure and occasional nocturia which was not previously present all beginning about 2 weeks ago. Her bladder scan residual today was 8 mL. Her urine is unremarkable other than trace glucose and trace of ketones. We discussed options including cystoscopy. Initially I suggest we place her on Gemtesa for a few weeks and see if this resolves her symptoms. She appears to empty well and does not appear to have an infection. If she fails to respond we will consider cystoscopy with possible urethral dilation. I reviewed her CT scan from [facility] obtained last week. Radha michael, [facility] 11/08/2022 16:21:34 3 text/htm l Patient is here in follow-up last seen 1 month ago for some suprapubic pressure and mild discomfort. She was given 4 weeks samples of Gemtesa and her symptoms completely resolved. We will continue therapy. LUBNA MORALES MD [address] [address] [place], [address], [facility] 12/12/2022 22:56:15 OBGyn Episode No OBEpisode recorded.
--- OUTSIDE RECORDS SUMMARY | 2024-10-31 11:18 | XMS_ITS | Encounter Summary ---
Author Organization Healthcare Address [address] [id number] Care Team Providers Care Golf Club Weighter Name Role Phone Unavailable Primary Care Provider Unavailabl e Reason for Referral * Consultation (Routine) - Authorized Specialty Diagnoses / Procedures Referred By Contjair t Referred To Contact Dentist / Pain Medicine Diagnoses Obstructive sleep apnea (adult) (pediatric) Rebeca Man MD [address] [place] [address] [place] [address] Phone: tel: fax: Rae Calle, DDS [address] [facility] [address] [place] [address] Phone: tel: fax: Referral ID Status Reason Start Date Expiration Date V isits Requested Visits Authorized [id number] Authorized 06/17/2023 12/16/2024 1 1 Encounter Details Date Type Department Care Team (Late st Contact Info) Description 06/17/2023 Community Orders [facility] [address] [place] [address] Rebeca Man MD [address] [place] [address] [place] [address] Obstructive sleep apnea (adult) (pediatric) (Primary Dx) Social History Tobacco Use Types Packs/Day Years Used Date Smoking Tobacco: Never Assessed Comments Unknown Sex and Gender Information Value Date Recorded Sex Assigned at Not on file Legal Sex Female 6:30 PM EDT Gender Identity Not on file Sexual Orientation Not on file documented as of this encounter Plan of Treatment Scheduled Referrals Name Type Priority Associated Diagnoses Order Schedule Ambulatory Referral to Orofacial Pain Outpatient Referral Routine Obstructive sleep apnea (adult) (pediatric) Expected: 06/17/2023 (Approximate), Expires: 12/15/2024 documented as of this encounter Visit Diagnoses Diagnosis Obstructive sleep apnea (adult) (pediatric)- Primary documented in this encounter
== END 2024-10-30 23:59 | disposition home or self-care (01) ==
LOC: LAB.DROPOF 10-31 11:14
PROVIDERS: PCP Nurse Practitioner Family; Visit Provider Nurse Practitioner Family
DX: E03.9 Hypothyroidism, unspecified (principal)
CPT/HCPCS: 84439; 84443

== ENCOUNTER 2025-02-14 10:20 | Outpatient (CLI) | payer BC, SELFPAY ==
[2025-02-14 14:24] LABS: Chloride 103 mmol/L (98-107); Potassium 4.7 mmoL/L (3.5-5.1); Sodium 139 mmol/L (136-145)
[2025-02-14 14:27] LABS: Blood Urea Nitrogen 16 mg/dl (7-17); Calcium 9.8 mg/dl (8.4-10.2); Cholesterol 226 mg/dl (140-200); Creatinine,Serum 0.70 mg/dl (0.52-1.04); Estimated Glomerular Filt Rate 87 ml/min (>60); GFR (African American) 106 ML/MIN (>60); Glucose 125 mg/dl (74-100); Triglycerides 70 mg/dl (30-150)
[2025-02-14 14:28] LABS: HDL Cholesterol 79 mg/dl (40-60)
[2025-02-14 14:34] LABS: Hemoglobin A1C 6.6 % (4.0-6.0)
[2025-02-14 14:42] LABS: Free T4 (Free Thyroxine) 1.82 ng/dl (0.78-2.19)
[2025-02-14 14:58] LABS: Thyroid Stimulating Hormone 0.97 uIU/mL (0.465-4.68)
[2025-02-14 18:03] LABS: Anion Gap 14.7 mEq/L (5-15); Carbon Dioxide 26 mmol/L (22.0-30.0)
--- OUTSIDE RECORDS SUMMARY | 2025-02-18 09:33 | XMS_ITS | Encounter Summary ---
Author Organization Healthcare Address [address] [place] [address] Care Team Providers Care National Account Executive Name Role Phone Unavailable Primary Care Provider Unavailabl e Encounter Details Date Type Department Care Team (Late st Contact Info) Description 06/17/2023 Community [facility] [address] [place] [address] Rebeca Man MD [address] [place] [address] Obstructive sleep apnea (adult) (pediatric) (Primary Dx) Social History Tobacco Use Types Packs/Day Years Used Date Smoking Tobacco: Never Assessed Comments Unknown Sex and Gender Information Value Date Recorded Sex Assigned at Not on file Legal Sex Female 6:30 PM EDT Gender Identity Not on file Sexual Orientation Not on file documented as of this encounter Plan of Treatment Not on file documented as of this encounter Visit Diagnoses Diagnosis Obstructive sleep apnea (adult) (pediatric)- Primary documented in this encounter
--- OUTSIDE RECORDS SUMMARY | 2025-02-18 09:33 | XMS_ITS | Encounter Summary ---
[facility] Organization [facility] Address [address] [place] [address] Care Team Providers Care Children'S Program Coordinator Name Role Phone Mo Nelida KODY Primary Care Provider [phone] Reason for Visit * Reason Comments Med Refill Encounter Details Date Type Department Care Team (Late st Contact Info) Description 02/12/2025 Refill [facility] ENDOCRINOLOGY [address] [facility] [address] [place] [id number] Chandler Upton MD [address] [place] [address] Social History Tobacco Use Types Packs/Day Years Used Date Smoking Tobacco: Never Passive Smoke Exposure: Never Smokeless Tobacco: Never Alcohol Use Standard Drinks/Week Comments Yes 0 (1 standard drink = 0.6 oz pur e alcohol) social Abuse Screen Answer Date Recorded Unsafe at Home or Work/School Not on file Feels Threatened by Someone? Not on file Does Anyone Keep You from Co ntacting Others or Doint Things Outside the Home? Not on file 03/04/2023 Physical Sign of Abuse Present Not on file 1 Housing Stability Answer Date Recorded Current Living Arrangements Not on file 02/20 Potentially Unsafe Housing Conditions Not on romelia e 03/04/2023 Family and Community Support Answer Fili e Recorded Help with Day-to-Day Activities Not on file 03/04/2023 Lonely or Isolated Not on file 03/04/2023 Employment Answer Date Recorded Do you want help finding or keeping work or a tariq b? Not on file 03/04/2023 Disabilities Answer Date Recorded Concentrating, Remembering, or Making Decisions Difficulty Not on file 03/04/2023 Doing Errands Independently Difficulty Not on fi le 03/04/2023 Education Answer Date Recorded Help with school or training? Not on file Preferred Language Not on file 03/04/2023 Comments Unknown Sex and Gender Information Value Date Recorded Sex Assigned at Not on file Legal Sex Female 10:48 AM EST Gender Identity Not on file Sexual Orientation Not on file documented as of this encounter Plan of Treatment Not on file documented as of this encounter Visit Diagnoses Not on filedocumented in this encounter Care Teams Children'S Program Coordinator Relationship Specialty Start Date End Date Nelida Hassan APRN [address] [place] [id number] PCP - General Nurse Practitioner 04/19/23 documented as of this encounter
--- OUTSIDE RECORDS SUMMARY | 2025-02-18 09:33 | XMS_ITS | Clinical Summary ---
Author Organization [facility] Address [address] [place] [address] Care Team Providers Care Queen'S Counsel Name Role Phone Unavailable Primary Care Provider [...] 2020 UKY-Zoster Vaccines (1 of 2) 2020 [id number] Vaccine (3 - 2024- season) 2025 03/06/2021, 02/06/2021 UKY-Influenza Vaccine (#1) 2025 HPV Vaccines Aged Out No longer [...] patient's age to complete this topic Insurance AN[employer]M
--- OUTSIDE RECORDS SUMMARY | 2025-02-18 09:33 | XMS_ITS | Clinical Summary ---
Author Organization [facility] Address [address] [place] [address] Care Team Providers Care Budget Assistant Name Role Phone HassanNelida KODY Primary Care Provider Allergies Active Allergy Reactions Criticality Noted Date Comments Penicillins Swelling High 04/19/2023 Swelling of tongue and gums Medications Euthyrox 100 MCG tablet 1 Active Lancets (freestyle) lancets USE 1 TO CHECK GLUCOSE 4 TIMES DAILY 1 Active FREESTYLE LITE test strip USE 1 STRIP TO CHECK GLUCOSE 4 TIMES DAILY FOR 30 DAYS 1 Active ezetimibe (ZETIA) 10 MG tablet Take 1 tablet by mouth Daily. 3 Active Continuous Blood Gluc Asian Studies Program Chair (Dexcom G6 Asian Studies Program Chair) device USE DIRECTED TO TEST BLOOD GLUCOSE LEVEL 3 Active Continuous Blood Gluc Sensor (Dexcom G6 Sensor) USE DIRECTED TO TEST BLOOD GLUCOSE LEVEL CHANGE SENSOR EVERY 10 DAYS 3 Active meclizine (ANTIVERT) 25 MG tablet 4 Active Continuous Glucose Transmitter (Dexcom G6 Transmitter) misc 1 each by Other route Every 3 (Three) Months. 1 each 1 4 Active Insulin Disposable Pump (Omnipod 5 [id number] Pods Gen 5) misc USE 1 POD EVERY OTHER DAY DIRECTED 30 each 5 Active NovoLOG 100 UNIT/ML injection USE DIRECTED IN INSULIN PUMP. MAXIMUM DAILY DOSE 100 UNITS. 30 mL 5 Active Active Problems Problem Noted Date Diagnosed Date Hyperglycemia due to type 1 diabetes mellitus Overview (04/19/2023): Gada strongly positive Assessment & Plan (08/30/2023 1:01 PM EDT): Improved. A1c at goal Plan: no changes Assessment & Plan (04/19/2023 12:47 PM EST): Deteriorated A1c >9 She is using premix insulin as a sliding scale. My recommendations are either to use basal bolus insulin or a sensor augmented pump like the op5. She prefers the latter. Once she picks it up, she will call here and we will get her trained Resolved Problems Problem Noted Date Diagnosed Date Resolved Date Uncontrolled type 2 diabetes mellitus with hyperglycemia 07/01/2021 04/19/2023 Assessment & Plan (07/01/2021 4:44 PM EST): Although her a1c is 7 with current treatment, I am concerned that she might in fact be a late onset type 1 diabetic and need to be certain. She has autoimmune thyroid disease and might have celiac. Her identical twin has celiac so autoimmune disease is prominent in her history. Will check serologies Encounters Date Type Department Care Team Description 02/12/2025 [facility] ENDOCRINOLOGY [address] [place] [address] Chandler Upton MD 02/12/2025 [facility] ENDOCRINOLOGY [address] [place] [address] Chandler Upton MD 12/26/2024 [facility] ENDOCRINOLOGY [address] [place] [address] Chandler Upton MD 11/19/2024 [facility] ENDOCRINOLOGY [address] [place] [address] Chandler Upton MD from Last 3 Months Family History Medical History Relation Name Comments Asthma Brother Diabetes Brother Heart disease Brother Hypertension Brother Diabetes Mother Heart disease Mother Hypertension Mother Stroke Mother Thyroid disease Mother Asthma Sister Fibromyalgia Sister Thyroid disease Sister Relation Name Status Comments Brother Alive Mother Alive Sister Social History Tobacco Use Types Packs/Day Years [...] on file Sexual Orientation Not on file Last Filed Vital Signs Vital Sign Reading Time Taken Comments Blood Pressure 102/60 08/30/2023 11:53 AM EDT Pulse 72 08/30/2023 11:53 AM EDT Temperature - - Respiratory Rate - - Oxygen Saturation 98% 08/30/2023 11:53 AM EDT Inhaled Oxygen Concentration - - Weight 60.8 kg (134 lb) 08/30/2023 11:53 AM EDT Height 165.1 cm (5' 5 ) 08/30/2023 11:53 AM EDT Body Mass Index 22.3 08/30/2023 11:53 AM EDT Plan of Treatment Health Maintenance Due Date Last Done Comments Annual Gynecologic Pelvic an d Breast Exam 1970 DIABETIC EYE EXAM 1980 URINE MICROALBUMIN-CREATININ E RATIO (uACR) 1980 Hepatitis B (1 of 3 - 19+ 3- dose series) 1989 Pneumococcal Vaccine 50+ (1 of 2 - PCV) 1989 TDAP/TD VACCINES (1 - Tdap) 1989 PAP SMEAR 12/28/1991 MAMMOGRAM 2010 COLOGUARD 12/28/2015 COLON CANCER SCREENING 5 YEA R SIGMOIDOSCOPY 12/28/2015 COLONOSCOPY 12/28/2015 COLORECTAL CANCER SCREENING 12/28/2015 CT COLONOGRAPHY 12/28/2015 FECAL OCCULT BLOOD TEST 12/28/2015 FIT Testing (1 year) 12/28/2015 ZOSTER VACCINE (1 of 2) 2020 ANNUAL PHYSICAL 07/01/2021 HEPATITIS C SCREENING 07/01/2021 HEMOGLOBIN A1C 02/29/2024 08/30/2023, 1112/2022, 07/01/2021 DIABETIC FOOT EXAM 08/29/2024 08/30/2023, 08/30/2023 INFLUENZA VACCINE 12/21/2024 Procedures Procedure Name Priority Date/Time Associated Diagnosis Comments POCT GLYCOSYLATED HEMOGLOBIN (HGB A1C) Routine 08/30/2023 12:12 PM EDT Hyperglycemia due to type 1 diabetes mellitus from Last 3 Months or Most Recently Relevant to Health Maintenance Results * (ABNORMAL) POC Glycosylated Hemoglobin (Hb A1C) (08/30/2023 12:12 PM EDT) Hemoglobin A1C 6.2(A) 4.5 - 5.7 % [facility] Lot Number [id number] [facility] Expiration Date 05/08/25 [facility] Blood 08/30/2023 12:1 2 PM EDT Chandler Upton MD POINT OF CARE TEST ORD ERABLES Final Result [facility]
[address] [place] [id number], from Last 3 Months or Most Recently Relevant to Health Maintenance [place] [address] [place] [address] PPO Care Teams Budget Assistant Relationship Specialty Start Date End Date Nelida Hassan APRN [address] [place] [address] PCP - General Nurse Practitioner 04/19/23
--- OUTSIDE RECORDS SUMMARY | 2025-02-18 09:33 | XMS_ITS | Encounter Summary ---
[facility] Address [address] [place] [address] Care Team Providers Care Medical Staff Manager Name Role Phone Mo Nelida KODY Primary Care Provider Reason for Visit * Reason Comments Med Refill Encounter Details Date Type Department Care Team (Late st Contact Info) Description 02/12/[address] [facility] ENDOCRINOLOGY [address] [facility] [address] [place] [phone] Chandler Upton MD [address] [place] [address] Social History Tobacco Use Types Packs/Day Years [...] on filedocumented in this encounter Care Teams Medical Staff Manager Relationship Specialty Start Date End Date Nelida Hassan APRN [address] [place] [id number] PCP - General Nurse Practitioner 04/19/23 documented as of this encounter
--- OUTSIDE RECORDS SUMMARY | 2025-02-18 09:33 | XMS_ITS | Encounter Summary ---
[facility] Address [address] [place] [address] Care Team Providers Care Peanut Cleaner Name Role Phone Mo Nelida KODY Primary Care Provider Reason for Visit * Reason Comments Med Refill Encounter Details Date Type Department Care Team (Late st Contact Info) Description 12/26/2024 Refill [facility] ENDOCRINOLOGY [address] [facility] [address] [place] [phone] Chandler Upton MD [address] [place] [address] Social History Tobacco Use Types Packs/Day Years [...] on filedocumented in this encounter Care Teams Peanut Cleaner Relationship Specialty Start Date End Date Nelida Hassan APRN [address] [place] [id number] PCP - General Nurse Practitioner 04/19/23 documented as of this encounter
== END 2025-02-14 23:59 ==
LOC: LAB.DROPOF 02-18 09:22
PROVIDERS: PCP Nurse Practitioner Family; Visit Provider Nurse Practitioner Family
DX: E03.9 Hypothyroidism, unspecified (principal); E78.5 Hyperlipidemia, unspecified; E10.9 Type 1 diabetes mellitus without complications; I10 Essential (primary) hypertension; G47.33 Obstructive sleep apnea (adult) (pediatric)
CPT/HCPCS: 80048; 80061; 83036; 84439; 84443